=== PATIENT | female | born 1980 | race Caucasian/White ===

== ENCOUNTER 2016-09-16 11:21 | Emergency (ER) | payer OTHER ==
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
[~2016-09-16 11:21] MED LIST: BACTRIM DS TABL1 TA1 PO; BIRTH CONTROL PILL PO; CELEXA PO; CELEXA20 MG PO; CIPRO500 MG/5 M PO; DIAZEPAM PO; DICYCLOMINE HCL20 MG PO; IBUPROFEN800 MG PO; IRON SUPPLEMENT1 TAB PO; LORTAB 7.5-5001 TAB PO; NAPROXEN PO; ORTHO-CYCLEN 281 EA PO; PEPCID AC20 M2 PO; RESTLESS LEG MED; SPRINTEC PO; STOOL SOFTENER1 EAC1 PO
== END 2016-09-16 14:24 | disposition home or self-care (01) ==
LOC: CED 11:21 → CFTX 11:21
DX: S80.02XA Contusion of left knee, initial encounter (principal); S90.01XA Contusion of right ankle, initial encounter; S16.1XXA Strain of muscle, fascia and tendon at neck level, initial encounter; S39.012A Strain of muscle, fascia and tendon of lower back, initial encounter; F32.9 Major depressive disorder, single episode, unspecified; F17.210 Nicotine dependence, cigarettes, uncomplicated; V49.40XA Driver injured in collision with unspecified motor vehicles in traffic accident, initial encounter; Y92.410 Unspecified street and highway as the place of occurrence of the external cause
CPT/HCPCS: 29530; 29540; 73560; 73610; 99284